=== PATIENT | male | born 1990 | race Caucasian/White ===

== ENCOUNTER → 2017-12-01 | Day surgery (SDC) | payer OTHER ==
[~2017-12-01] MED LIST: DEXAMETHASONE 4 MG/ML VIAL ONE; HYDROmorphONE/DILAUDID 1 MG/ML INJ IVP PRN; IOPAMIDOL (ISOVUE-M 300) 15 ML VIAL ONE; KETOROLAC 30 MG/1 ML SDV ONE; LIDOCAINE 2% 5 ML SDV ONE; LIDOCAINE 2% JELLY 20 ML (UROJECT) ONE; LR 1,000 ML IV ONE; MEPERIDINE 25 MG/ML SYR IVP PRN; MEPERIDINE 25 MG/ML SYR ONE; MIDAZOLAM 2 MG/2 ML VIAL IVP ONE; NALOXONE HCL 0.4 MG/ML INJ IVP PRN; NS 1,000 ML IV ONE; ONDANSETRON 4 MG/2 ML VIAL IVP ONE; ONDANSETRON 4 MG/2 ML VIAL IVP PRN; ONDANSETRON 4 MG/2 ML VIAL ONE; OPIUM/BELLADONNA ALKALO SUPP PR PRN; OXYCODONE/APAP 5/325 TAB PO PRN; PHENAZOPYRIDINE HCL 200 MG TAB ONE; PHENAZOPYRIDINE HCL 200 MG TAB PO SCH; PROMETHAZINE HCL 25 MG/ML INJ IVP PRN; PROPOFOL 200 MG/20 ML VIAL ONE; ceFAZolin 2 GM in D5W 100 ML IV ONE; ceFAZolin 2 GM/DEXTROSE 100 ML IV ONE; ceFAZolin 2 GM/SWFI 2 GM/20 ML SYR IVP ONE; fentaNYL 100 MCG/2 ML INJ IVP PRN
--- NOTE | 2017-12-01 13:09 | EDPHY ---
H & P Time Seen by Provider: 12/01/17 12:40 HPI/ROS: CHIEF COMPLAINT: Right flank pain, vomiting HISTORY OF PRESENT ILLNESS: 27-year-old male presents with right flank pain and vomiting. 1 week ago he presented to [facility] [place] [facility] with gross hematuria. CT scan of the abdomen and pelvis revealed a large right ureteral calculus. Minimal pain until this morning, when he had onset of severe right flank pain, associated with multiple episodes of vomiting. The pain waxes and wanes and is moderate to severe. Radiates to the right lower quadrant. No fever. No dysuria or hematuria. No prior kidney stone. He is on 2 types of unknown antibiotics for a recent dog bite to the nose. REVIEW OF SYSTEMS: Constitutional: No fever, no chills Eyes: No visual changes ENT: No sore throat Respiratory: No cough, no shortness of breath Cardiac: No chest pain Musculoskeletal: No leg pain or swelling Skin: No rash Neurological: No headache, no weakness Psychiatric: No depression Past Medical/Surgical History: Denies Social History: Single, no recent alcohol Smoking Status: Light smoker Physical Exam: General Appearance: Alert, pleasant, appears in pain Eyes: Pupils equal and round, no conjunctival pallor or injection ENT, Mouth: Mucous membranes moist Neck: Normal inspection Respiratory: Lungs are clear to auscultation Cardiovascular: Regular rate and rhythm Gastrointestinal: Abdomen is soft, right lower quadrant tenderness Back: Right CVA tenderness Neurological: A&O, nonfocal, normal gait Skin: Warm and dry, no rash Extremities: Normal inspection Psychiatric: Mood and affect normal Constitutional: Initial Vital Signs Temperature (C) 36.4 C 12/01/17 11:22 Heart Rate 62 12/01/17 11:22 Respiratory Rate 20 12/01/17 11:22 Blood Pressure 146/94 H 12/01/17 11:22 O2 Sat (%) 100 12/01/17 11:22 O2 Delivery Mode Room Air O2 (L/minute) 6 Allergies/Adverse Reactions: No Known Allergies Allergy (Verified 08/12/14 12:01) Home Medications: Medication Instructions Recorded Ciprofloxacin HCl [Ciprofloxacin] 500 mg PO BID 12/01/17 Clindamycin HCl [Clindamycin] 300 mg PO QID 12/01/17 Herbals/Supplements -Info Only 1 ea PO DAILY 12/01/17 Ibuprofen [Motrin (*)] 600 mg PO DAILY PRN 12/01/17 Phenazopyridine HCl [Pyridium] 200 mg PO Q8H PRN 7 Days #21 tab 12/01/17 Sennosides/Docusate Sodium 1 each PO BID PRN 30 Days #60 12/01/17 [Senna-S Tablet] tablet Tamsulosin HCl [Flomax 0.4 MG (*)] 0.4 mg PO DAILY #10 cap 12/01/17 oxyCODONE/APAP 5/325 [Percocet 1 - 2 tab PO Q4HRS PRN 4 Days #25 12/01/17 5/325 (*)] tab Medical Decision Making ED Course/Re-evaluation: I received a phone call from Dr. Fry prior to this pt's arrival. Plan for lithotripsy this afternoon. Morphine and Zofran IV given for pain control. Patient understands that he is NPO. 1420--comfortable, feels thirsty. 2nd L of normal saline given. Urinalysis pending. Awaiting Dr. Fry. 1440--d/w Dr. Alves who saw the pt. Plan for hospitalist admission, hopefully lithotripsy this evening. The hospitalist service was consulted for admission, d/w Dr. Lynch, will admit. Pain returning, Morphine IV given. Differential Diagnosis: Differential diagnosis includes though it is not limited to appendicitis, cholecystitis, diverticulitis, pyelonephritis, bowel perforation, small bowel obstruction. - Data Points Laboratory Results: Laboratory Results 12/01/17 11:41 12/01/17 11:41 Medications Given: Belladonna Alkaloids/Opium (B & O) 1 each VA Q6HRS PRN PRN Reason: Spasms Stop: 12/11/17 16:14 Last Admin: 12/01/17 17:24 Dose: 1 each Phenazopyridine HCl (Pyridium) 200 mg PO PC YASMIN Stop: 05/30/18 18:59 Last Admin: 12/01/17 18:36 Dose: 200 mg Discontinued Medications Sodium Chloride (Ns) 1,000 mls @ 0 mls/hr IV ONCE ONE; Wide Open PRN Reason: Protocol Stop: 12/01/17 13:06 Last Admin: 12/01/17 13:25 Dose: 1,000 mls Sodium Chloride (Ns) 1,000 mls @ 0 mls/hr IV ONCE ONE; Wide Open PRN Reason: Protocol Stop: 12/01/17 14:22 Last Admin: 12/01/17 14:15 Dose: 1,000 mls Lactated Ringer's (Lr) 1,000 mls @ 0 mls/hr IV ONCE ONE PRN Reason: Per Protocol Stop: 12/01/17 15:50 Last Admin: 12/01/17 16:14 Dose: 1,000 mls Cefazolin Sodium (Cefazolin Syringe) 2 gm in 20 mls @ 200 mls/hr IVP ONCALL ONE Stop: 12/01/17 16:35 Last Admin: 12/01/17 16:40 Dose: 20 mls Iopamidol (Isovue-M 300) Confirm Administered Dose 15 ml .ROUTE .STK-MED ONE Stop: 12/01/17 16:01 Last Admin: 12/01/17 17:08 Dose: 15 ml Lidocaine (Uroject Lidocaine 2% Jelly) Confirm Administered Dose 20 ml .ROUTE .STK-MED ONE Stop: 12/01/17 16:01 Last Admin: 12/01/17 17:08 Dose: 20 ml Meperidine HCl (Demerol 25 Mg/Ml Syringe) 12.5 - 25 mg IVP ONCE PRN PRN Reason: PACU,shivering/rigors Stop: 12/01/17 19:07 Last Admin: 12/01/17 18:34 Dose: 12.5 mg Midazolam HCl (Versed) 2 mg IVP ONCALL ONE Stop: 12/01/17 15:51 Last Admin: 12/01/17 16:20 Dose: 2 mg Morphine Sulfate (Morphine) 6 mg IVP Q1H PRN PRN Reason: Pain, Severe Unable to Take PO Last Admin: 12/01/17 15:03 Dose: 6 mg Ondansetron HCl (Zofran) 4 mg IVP EDNOW ONE Stop: 12/01/17 13:05 Last Admin: 12/01/17 13:27 Dose: 4 mg Ondansetron HCl (Zofran) 2 - 4 mg IVP Q10M PRN PRN Reason: PACU, Nausea/Vomiting Stop: 12/01/17 19:07 Last Admin: 12/01/17 18:58 Dose: 4 mg Departure - Departure Disposition: To OP Cath/Surgery Clinical Impression: Right ureteral calculus Condition: Fair
[2017-12-01 13:19] LABS: PLATELET COUNT 219 10^3/uL (150-400)
--- NOTE | 2017-12-01 15:51 | PDANEPAE ---
ANE History of Present Illness renal stone right ANE Past Medical History - Pulmonary History Hx Oxygen in Use at Home: No - Endocrine History Hx Diabetes: No ANE Review of Systems Review of Systems: ANE Patient History - Allergies Allergies/Adverse Reactions: No Known Allergies Allergy (Verified 08/12/14 12:01) - Home Medications Home Medications: Ciprofloxacin HCl [Ciprofloxacin] 500 mg PO BID 12/01/17 [Last Taken 12/01/17 AM DOSE] Clindamycin HCl [Clindamycin] 300 mg PO QID 12/01/17 [Last Taken 12/01/17 ONE DOSE TODAY] Herbals/Supplements -Info Only 1 ea PO DAILY 12/01/17 [Last Taken Unknown] Ibuprofen [Motrin (*)] 600 mg PO DAILY PRN 12/01/17 [Last Taken 12/01/17] - NPO status NPO Since - Liquids (Date): 12/01/17 NPO Since - Liquids (Time): 10:00 NPO Since - Solids (Date): 12/01/17 NPO Since - Solids (Time): 10:00 - Smoking Hx Smoking Status: Light smoker ANE Labs/Vital Signs - Labs Result Diagrams: 12/01/17 11:41 12/01/17 11:41 - Vital Signs Blood Pressure: 133/83 Heart Rate: 87 Respiratory Rate: 87 O2 Sat (%): 100 Height: 177.8 cm Weight: 68.946 kg ANE Physical Exam - Airway Neck exam: FROM Mallampati Score: Class 1 Mouth exam: normal dental/mouth exam - Pulmonary Pulmonary: no respiratory distress - Cardiovascular Cardiovascular: regular rate and rhythym - ASA Status ASA Status: I ANE Anesthesia Plan Anesthesia Plan: GA w LMA
--- NOTE | 2017-12-01 16:14 | PDGENHP ---
History and Physical - Chief Complaint right stone - History of Present Illness 27M with R obstructing proximal stone, associated pain. CT scan from 11/21 reviewed - R proximal stone around 10mm, assoc hydro. No other stones. Associated nausea, emesis. Hematuria a couple weeks ago, but none since. Desires treatment of his stone. History Information - Allergies/Home Medication List Allergies/Adverse Reactions: No Known Allergies Allergy (Verified 08/12/14 12:01) Home Medications: Ciprofloxacin HCl [Ciprofloxacin] 500 mg PO BID 12/01/17 [Last Taken 12/01/17 AM DOSE] Clindamycin HCl [Clindamycin] 300 mg PO QID 12/01/17 [Last Taken 12/01/17 ONE DOSE TODAY] Herbals/Supplements -Info Only 1 ea PO DAILY 12/01/17 [Last Taken Unknown] Ibuprofen [Motrin (*)] 600 mg PO DAILY PRN 12/01/17 [Last Taken 12/01/17] I have personally reviewed and updated: family history, medical history, social history, surgical history - Social History Smoking Status: Former smoker Review of Systems Review of Systems: ROS: 10pt was reviewed & negative except for what was stated in HPI & below Physical Exam Physical Exam: AFVSS Gen NAD A&O CV regular Lungs Normal effort Abd soft Ext warm, no edema CVA tendernss, yes R side Temp Pulse Resp BP Pulse Ox 37.4 C 87 87 H 133/83 H 100 12/01/17 15:50 12/01/17 15:51 12/01/17 15:51 12/01/17 15:51 12/01/17 15:51 O2 (L/minute) 2 Lab Data & Imaging Review 12/01/17 11:41 12/01/17 11:41 WBC 4.41 10^3/uL (3.80-9.50) 12/01/17 11:41 RBC 5.38 10^6/uL (4.40-6.38) 12/01/17 11:41 Hgb 16.7 g/dL (13.7-17.5) 12/01/17 11:41 Hct 45.6 % (40.0-51.0) 12/01/17 11:41 MCV 84.8 fL (81.5-99.8) 12/01/17 11:41 MCH 31.0 pg (27.9-34.1) 12/01/17 11:41 MCHC 36.6 g/dL (32.4-36.7) 12/01/17 11:41 RDW 11.5 % (11.5-15.2) 12/01/17 11:41 Plt Count 219 10^3/uL (150-400) 12/01/17 11:41 MPV 10.6 fL (8.7-11.7) 12/01/17 11:41 Neut % (Auto) 55.6 % (39.3-74.2) 12/01/17 11:41 Lymph % (Auto) 31.5 % (15.0-45.0) 12/01/17 11:41 [place] % (Auto) 9.1 % (4.5-13.0) 12/01/17 11:41 Eos % (Auto) 2.0 % (0.6-7.6) 12/01/17 11:41 Baso % (Auto) 1.6 % (0.3-1.7) 12/01/17 11:41 Nucleat RBC Rel Count 0.0 % (0.0-0.2) 12/01/17 11:41 Absolute Neuts (auto) 2.45 10^3/uL (1.70-6.50) 12/01/17 11:41 Absolute Lymphs (auto) 1.39 10^3/uL (1.00-3.00) 12/01/17 11:41 Absolute Monos (auto) 0.40 10^3/uL (0.30-0.80) 12/01/17 11:41 Absolute Eos (auto) 0.09 10^3/uL (0.03-0.40) 12/01/17 11:41 Absolute Basos (auto) 0.07 10^3/uL (0.02-0.10) 12/01/17 11:41 Absolute Nucleated RBC 0.00 10^3/uL (0-0.01) 12/01/17 11:41 Immature Gran % 0.2 % (0.0-1.1) 12/01/17 11:41 Immature Gran # 0.01 10^3/uL (0.00-0.10) 12/01/17 11:41 Sodium 145 mEq/L (134-144) H 12/01/17 11:41 Potassium 4.3 mEq/L (3.5-5.2) 12/01/17 11:41 Chloride 109 mEq/L (97-110) 12/01/17 11:41 Carbon Dioxide 20 mEq/l (22-31) L 12/01/17 11:41 Anion Gap 16 mEq/L (8-16) 12/01/17 11:41 BUN 10 mg/dL (7-23) 12/01/17 11:41 Creatinine 0.9 mg/dL (0.7-1.3) 12/01/17 11:41 Estimated GFR > 60 12/01/17 11:41 Glucose 104 mg/dL (70-100) H 12/01/17 11:41 Calcium 10.3 mg/dL (8.5-10.4) 12/01/17 11:41 Urine Color YELLOW 12/01/17 14:20 Urine Appearance HAZY 12/01/17 14:20 Urine pH 6.0 (5.0-7.5) 12/01/17 14:20 Ur Specific [place] 1.027 (1.002-1.030) 12/01/17 14:20 Urine Protein NEGATIVE (NEGATIVE) 12/01/17 14:20 Urine Ketones 1+ (NEGATIVE) H 12/01/17 14:20 Urine Blood 3+ (NEGATIVE) H 12/01/17 14:20 Urine Nitrate NEGATIVE (NEGATIVE) 12/01/17 14:20 Urine Bilirubin NEGATIVE (NEGATIVE) 12/01/17 14:20 Urine Urobilinogen NEGATIVE EU (0.2-1.0) 12/01/17 14:20 Ur Leukocyte Esterase NEGATIVE (NEGATIVE) 12/01/17 14:20 Urine RBC 50-182 /hpf (0-3) H 12/01/17 14:20 Urine WBC 1-3 /hpf (0-3) 12/01/17 14:20 Ur Epithelial Cells TRACE /lpf (NONE-1+) 12/01/17 14:20 Urine Bacteria TRACE /hpf (NONE SEEN) H 12/01/17 14:20 Urine Mucus 1+ /lpf (NONE-1+) 12/01/17 14:20 Urine Glucose NEGATIVE (NEGATIVE) 12/01/17 14:20 Assessment & Plan Assessment: Right ureteral calculus (Acute) Plan: R URS, laser, stent. Rationale/risks/benefits reviewed. He agrees to proceed. Ancef preop abx.
--- NOTE | 2017-12-01 18:07 | POSTOPPROG ---
Post Op Note Date of Operation: 12/01/17 Surgeon: Ida Fry Anesthesia: GET(General Endotracheal) Pre-op Diagnosis: right ureteral stone Post-op Diagnosis: same Indication: symptomatic right ureteral stone Procedure: cysto, R URS, laser, stent, basket ext stone, RGP Findings: impacted R ureteral stone Inf/Abcess present in the surg proc area at time of surgery?: No Depth: Organ Space (right collecting system) EBL: Minimal Complications: none, patient tolerated procedure well Specimen(s): stone fragments
--- NOTE | 2017-12-01 18:08 | POSTANESTH ---
Post Anesthetic Evaluation Cardiovascular Status: Normal, Stable Respiratory Status: Normal, Stable Level of Consciousness/Mental Status: Can Participate in Eval Pain Control: Adequate, Prn Tx Ordered Nausea/Vomiting Control: Adequate, Prn Tx Ordered Complications Possibly Related to Anesthesia: None Noted
[2017-12-01 19:19] VITALS: TEMP 97.3
[2017-12-01 19:38] VITALS: BP 122/79; PULSE 76; RESP 16; O2SAT 94
--- NOTE | 2017-12-02 03:11 | GOP ---
[f rep st] OPERATIVE REPORT DATE OF OPERATION: 12/01/2017 SURGEON: Ida Fry MD PREOPERATIVE DIAGNOSIS: Right ureteral stone. POSTOPERATIVE DIAGNOSIS: Right ureteral stone. PROCEDURE PERFORMED: Cystoscopy, right ureteroscopy, laser lithotripsy, stent 6 -Sol[place] Islander x 28 cm, basket extraction of stone, and retrograde pyelogram, intraoperative fluoroscopy. FINDINGS: Impacted right proximal ureteral stone, easily dusted and fragmented basket extracted. INDICATIONS: The patient is a 27-year-old gentleman, who a couple weeks ago was found to have a right ureteral stone. He was asymptomatic until yesterday, with nausea, vomiting, and severe discomfort on the right side. He elected to call my office this morning and ask if he could be treated for this stone. I had not seen this patient yet in my clinic as he was scheduled for next week, and I said to just go to the [facility] ER, and we will evaluate and treat. He understood. He was seen in the ER, evaluated there. Urine was negative. White count was normal, and I did review his films from [facility] images, showing a right 1 cm proximal ureteral stone. Went over the rationale, risks, and benefits of the procedure, and he elected to do ureteroscopy. Risks included bleeding, infection, discomfort, need for stent, injury to the bladder, urethra, ureter, inability to gain access to the stone, need for a stent only with subsequent treatment of the stone at a later date. He understood these risks and agreed to proceed. DESCRIPTION OF PROCEDURE: He was taken back to the operating room, placed on the operating table in a supine position. General anesthesia induced without complication. Timeout performed and core measures satisfied, including placement of a Simone Hugger, SCDs, and administration of 2 g Ancef antibiotics. He was brought to the end of the table, placed in a dorsal lithotomy position. All pressure points padded. Genitalia draped and prepped in a standard surgical fashion with Betadine. Rigid cystoscope easily cannulated his urethral meatus and advanced atraumatically into the bladder. Pancystoscopy performed, and the bladder was completely normal with no lesions, cellules, trabeculations. Right and left ureteral orifices were in their expected anatomical positions. The right ureteral orifice was identified, and 2 wires were passed in the right collecting system up to the renal pelvis with fluoroscopic guidance. One of the wires would be a safety wire. The other one would be the working wire. I passed a [id number] ureteral access sheath over the working wire with fluoroscopic guidance, right up to the level of the stone, which I could clearly see on fluoroscopy. Of note, I did all my own fluoroscopic work and all my own fluoroscopic interpretation. Once at the level of the stone, I advanced a flexible ureteroscope to there level of the stone, saw the stone, and began to laser with a 200 micron laser. I was able to nearly dust this entire, stone and then once the stone was in a size that I could break it into a couple pieces and basket extract it out, I did that. I looked through all the calyces and did basket out the 2 larger fragments, and then the rest of it was all just dust, but I was able to basket out some of the dust as it had conglomerated together. At the end of the case, I felt I had him stone-free. There were no other stones in the renal pelvis. I did a retrograde pyelogram and the renal pevlis was normal with normal calcyes. I removed my ureteroscope with the access sheath together. Exmained the wall of the ureter where the stone was proximally. It was very edematous and swollen due to the impaction, but otherwise looked as expected for an impacted stone. The remaining ureter looked normal, pristine, without any abnormalities, and then without difficulty , placed a 6-[place] Islander 28 cm double-J stent with fluoroscopic and videoscopic guidance. There was a nice curl in the bladder, a nice curl in the renal pelvis. I emptied his bladder and placed lidocaine jelly and a belladonna and opium suppository per rectum. At this point, the procedure was considered complete. He was awoken from anesthesia and transferred to PACU. He will be discharged with oxycodone, Flomax, docusate/senna, and Pyridium. I will see him next for stent removal. SURGEON: Ida Fry MD /[id number]/MODL MTDD
== END | disposition home or self-care (01) ==
LOC: UNDOADMOB 14:47 → FSGY 14:47 → INTOOBSV 14:47 → UNDODISOB 19:40
PROVIDERS: ATTEND Urology
PROC: 0T768DZ Dilation of Right Ureter with Intraluminal Device, Via Natural or Artificial Opening Endoscopic (ICD-10-PCS; principal; 2017-12-01 15:45)
PROC: 0TC38ZZ Extirpation of Matter from Right Kidney Pelvis, Via Natural or Artificial Opening Endoscopic (ICD-10-PCS; principal; 2017-12-01 15:45)
PROC: 0TF68ZZ Fragmentation in Right Ureter, Via Natural or Artificial Opening Endoscopic (ICD-10-PCS; principal; 2017-12-01 15:45)
DX: N20.1 Calculus of ureter (principal)
CPT/HCPCS: 82365-90; 96374; J0690; J1100; J1885; J2250; J2405; J2704; Q9967

== ENCOUNTER 2018-12-13 13:16 | Emergency (ER) | payer MEDICAID, OTHER ==
--- NOTE | 2018-12-13 14:36 | EDPHY ---
H & P Stated Complaint: R flank/abd pain Time Seen by Provider: 12/13/18 14:14 HPI/ROS: CHIEF COMPLAINT: Hematuria, lower abdominal discomfort HISTORY OF PRESENT ILLNESS: 28-year-old male with history of kidney stones presents with hematuria and lower abdominal discomfort. Onset of gross hematuria this morning. Associated with suprapubic discomfort. Initially the discomfort was 4/10, now quite mild. No flank pain or upper abdominal pain. History of kidney stone x1, treated with lithotripsy. REVIEW OF SYSTEMS: complete 10 point ROS reviewed and is negative except for the noted elements in the HPI - Personal History Current Tetanus/Diphtheria Vaccine: Yes - Medical/Surgical History Hx Asthma: No Hx Chronic Respiratory Disease: No Hx Diabetes: No Hx Cardiac Disease: No Hx Renal Disease: No Hx Cirrhosis: No Hx Alcoholism: No Hx HIV/AIDS: No Hx Splenectomy or Spleen Trauma: No Other PMH: Kidney stones - Social History Smoking Status: Former smoker - Physical Exam Exam: General Appearance: Alert, pleasant Eyes: Pupils equal and round, no conjunctival pallor or injection ENT, Mouth: Mucous membranes moist Neck: Normal inspection Respiratory: Lungs are clear to auscultation Cardiovascular: Regular rate and rhythm Gastrointestinal: Abdomen is soft, mild suprapubic tenderness Back: No CVA tenderness Neurological: A&O, nonfocal, normal gait Skin: Warm and dry Extremities: Normal inspection Psychiatric: Mood and affect normal Constitutional: Initial Vital Signs Temperature (C) 36.5 C 12/13/18 13:20 Heart Rate 95 12/13/18 13:20 Respiratory Rate 18 12/13/18 13:20 Blood Pressure 112/85 H 12/13/18 13:20 O2 Sat (%) 96 12/13/18 13:20 O2 Delivery Mode Room Air Allergies/Adverse Reactions: No Known Allergies Allergy (Verified 12/13/18 13:22) Home Medications: Medication Instructions Recorded Ciprofloxacin HCl [Ciprofloxacin] 500 mg PO BID 12/01/17 Clindamycin HCl [Clindamycin] 300 mg PO QID 12/01/17 Herbals/Supplements -Info Only 1 ea PO DAILY 12/01/17 Ibuprofen [Motrin (*)] 600 mg PO DAILY PRN 12/01/17 Phenazopyridine HCl [Pyridium] 200 mg PO Q8H PRN 7 Days #21 tab 12/01/17 Sennosides/Docusate Sodium 1 each PO BID PRN 30 Days #60 12/01/17 [Senna-S Tablet] tablet Tamsulosin HCl [Flomax 0.4 MG (*)] 0.4 mg PO DAILY #10 cap 12/01/17 oxyCODONE/APAP 5/325 [Percocet 1 - 2 tab PO Q4HRS PRN 4 Days #25 12/01/17 5/325 (*)] tab Ciprofloxacin [Cipro] 500 mg PO BID #20 tab 12/13/18 Medical Decision Making - Diagnostics Imaging Results: Abdomen/Pelvis CT 12/13/18 14:32 Impression: No hydronephrosis. No renal or ureteral stones. Attention: This examination does not use radiographic contrast, and as such, provides only a limited evaluation of the abdomen, pelvis, and retroperitoneum. If there is further clinical suspicion for pathological conditions, a complete CT evaluation of the abdomen and pelvis utilizing intravenous, oral, and rectal contrast should be considered. Imaging: Discussed imaging studies w/ outbound call center representative Radiologist ED Course/Re-evaluation: This pt presents with hematuria and lower abd pain, likely renal colic (vs UTI) . CT abd/pelvis unremarkable. Results d/w pt, pain has resolved, likely passed a kidney stone. Abd soft, NT. UA c/w UTI, will place on Cipro pending urine cx. Warning signs discussed. f/u urology. Differential Diagnosis: includes though not limited to renal colic, UTI, prostatitis, urinary tumor, appy Departure - Departure Disposition: Home, Routine, Self-Care Clinical Impression: Unspecified renal colic, Gross hematuria Condition: Good Instructions: Kidney Stones (ED), Hematuria (ED), Urinary Tract Infection in Men (ED) Additional Instructions: Your CT scan is normal. There is no evidence of ureteral calculus or renal calculus. I think that you have passed a kidney stone. You may have a urinary tract infection. I sent a urine culture to confirm. Please take antibiotics as prescribed. Follow-up with urology. Referrals: Fausto Moran MD [Medical Doctor] - As per Instructions Prescriptions: Ciprofloxacin [Cipro] 500 mg PO BID #20 tab
[2018-12-13 15:42] VITALS: BP 112/64
== END 2018-12-13 15:42 | disposition home or self-care (01) ==
DX: N23 Unspecified renal colic (principal); R31.0 Gross hematuria; Z87.891 Personal history of nicotine dependence